=== PATIENT | female | born 1950 | race African-American/Black ===

== ENCOUNTER 2020-12-26 12:04 | Inpatient (IN) | payer MEDICARE ==
[2020-12-26 12:46] LABS: #Monocytes 0.7 10x3/uL (0.0-1.1); %Basophils 0.3 % (0.0-2.0); %Eosinophils 0.3 % (0.0-6.0); %Lymphocytes 34.4 % (18.0-47.0); %Monocytes 7.8 % (0.0-10.0); Hemoglobin 12.4 g/dL (12.0-15.5); Mean Corpuscular HGB CONC 34.1 g/dL (32.0-36.0); Mean Corpuscular Hemoglobin 35.4 pg (27.0-33.0); Mean Platelet Volume 9.2 fl (7.4-10.4); Platelet Count 426 10x3/uL (150-450); RBC Distribution Width 13.8 % (11.5-14.5); White Blood Cell (WBC) Count 8.8 10x3/uL (3.5-10.5)
[2020-12-26] MEDS ORDERED: HYDROcodone/Acetaminophen 10/325 mg Tablet ONE (12:50)
[2020-12-26 13:11] LABS: INR-International Normal Ratio 1.1; PTT 29.3 sec (22.0-33.0); Prothrombin Time 11.5 sec (9.5-12.1)
[2020-12-26 13:34] LABS: ALT (SGPT) 13 U/L (8-55); AST (SGOT) 24 U/L (5-34); Alkaline Phosphatase 92 U/L (40-110); Anion Gap 18 mmol/L (10-20); BUN (Urea Nitrogen) 14 mg/dL (9.8-20.1); Bilirubin, Total 0.4 mg/dL (0.2-1.2); Calc. Creatinine Clearance 0 mL/min (70-130); Calcium 10.3 mg/dL (7.8-10.44); Carbon Dioxide 21 mmol/L (23-31); Chloride 100 mmol/L (98-107); Globulin 3.7 g/dL (2.4-3.5); Glucose 95 mg/dL (83-110); Potassium 3.4 mmol/L (3.5-5.1); Protein, Total 7.7 g/dL (5.8-8.1); Sodium 136 mmol/L (136-145)
[2020-12-26] MEDS ORDERED: Lidocaine 1% (PF) 30 ML VIAL ONE (15:16)
[2020-12-26] MEDS ORDERED: Nitroglycerin 50 MG/250 ML BOT 0 ML ONE (15:16)
[2020-12-26] MEDS ORDERED: Heparin 10,000 UNITS/ 10 ML VIAL ONE (15:16)
[2020-12-26] MEDS ORDERED: Adenosine 6 MG/2 ML VIAL ONE (15:17)
[2020-12-26] MEDS ORDERED: Sodium Chloride 0.9% 1,000 ML ONE (15:18)
[2020-12-26] MEDS ORDERED: Midazolam HCl 5 mg/5 ml Vial ONE (15:42)
[2020-12-26] MEDS ORDERED: Fentanyl 250 MCG/5 ML VIAL ONE (15:42)
[2020-12-26] MEDS ORDERED: Heparin 25,000 units/D5W 500 ML ONE (16:19)
[2020-12-26] MEDS ORDERED: hydrALAZINE 20 MG/ML VIAL ONE ×2 (16:35→17:24)
[2020-12-26] MEDS ORDERED: SODIUM CHLORIDE 0.9% IVPB SCH ×3 (17:00→18:45)
[2020-12-26] MEDS ORDERED: ALTEPLASE IVPB SCH ×3 (17:00→18:45)
[2020-12-26] MEDS ORDERED: Labetalol HCl 100 MG/20 ML VIAL ONE (17:02)
[2020-12-26] MEDS ORDERED: Sodium Chloride 0.9% 1,000 ML IV SCH (17:15)
[2020-12-26] MEDS ORDERED: Heparin 25,000 units/D5W 500 ML IVPB SCH (17:30)
[2020-12-26] MEDS ORDERED: Heparin 10,000 UNITS/ 10 ML VIAL SLOW IVP SCH (18:45)
[2020-12-26] MEDS ORDERED: Heparin 25,000 units/D5W 500 ML IV SCH (18:45)
[2020-12-26] MEDS: Morphine 2 MG/ML VIAL SLOW IVP PRN ×4 (18:50→22:45)
[2020-12-26] MEDS: Fentanyl 100 MCG/2 ML VIAL SLOW IVP PRN ×4 (19:45→23:45)
[2020-12-26] MEDS ORDERED: Nitroglycerin 2% Ointment 1 INCH/1 GM Packet TOP PRN (20:13)
[2020-12-26] MEDS ORDERED: Labetalol HCl 100 MG/20 ML VIAL IVPB PRN (20:14)
[2020-12-26] MEDS ORDERED: Nitroglycerin 50 MG/250 ML BOT 250 ML IVPB SCH (20:30)
[2020-12-26 20:43] LABS: Hemoglobin 12.1 g/dL (12.0-15.5); Platelet Count 397 10x3/uL (150-450)
[2020-12-27 00:48] LABS: PTT 90.9 sec (22.0-33.0)
[2020-12-27] MEDS: Fentanyl 100 MCG/2 ML VIAL SLOW IVP PRN ×5 (01:10→18:53)
[2020-12-27 02:44] LABS: #Monocytes 0.5 10x3/uL (0.0-1.1); #Neutrophils 4.8 10x3/uL (1.5-8.4); %Basophils 0.4 % (0.0-2.0); %Lymphocytes 22.8 % (18.0-47.0); %Monocytes 7.5 % (0.0-10.0); %Neutrophils 68.2 % (40.0-75.0); Hemoglobin 8.3 g/dL (12.0-15.5); Mean Corpuscular HGB CONC 34.3 g/dL (32.0-36.0); Mean Corpuscular Hemoglobin 35.5 pg (27.0-33.0); Mean Corpuscular Volume 103.4 fl (81.6-98.3); Mean Platelet Volume 9.8 fl (7.4-10.4); Platelet Count 279 10x3/uL (150-450); RBC Distribution Width 13.9 % (11.5-14.5); Red Blood Cell (RBC) Count 2.34 10x6/uL (3.90-5.03)
[2020-12-27 03:23] LABS: Anion Gap 18 mmol/L (10-20); Globulin 2.3 g/dL (2.4-3.5)
[2020-12-27 03:29] LABS: ALT (SGPT) 10 U/L (8-55); AST (SGOT) 21 U/L (5-34); Albumin 2.5 g/dL (3.4-4.8); Alkaline Phosphatase 57 U/L (40-110); BUN (Urea Nitrogen) 16 mg/dL (9.8-20.1); Bilirubin, Total 0.3 mg/dL (0.2-1.2); Calc. Creatinine Clearance 69 mL/min (70-130); Calcium 6.6 mg/dL (7.8-10.44); Carbon Dioxide 13 mmol/L (23-31); Chloride 105 mmol/L (98-107); Glucose 443 mg/dL (83-110); Potassium 2.6 mmol/L (3.5-5.1); Protein, Total 4.8 g/dL (5.8-8.1); Sodium 133 mmol/L (136-145)
[2020-12-27 06:39] LABS: PTT 83.3 sec (22.0-33.0)
[2020-12-27] MEDS ORDERED: Potassium Chloride 20 MEQ TAB PO SCH (06:45)
[2020-12-27 07:02] LABS: Platelet Count 359 10x3/uL (150-450)
[2020-12-27] MEDS ORDERED: Lidocaine 1% (PF) 30 ML VIAL ONE (08:37)
[2020-12-27] MEDS ORDERED: Bivalirudin 250 MG VIAL ONE (08:38)
[2020-12-27] MEDS ORDERED: Adenosine 6 MG/2 ML VIAL ONE (08:38)
[2020-12-27] MEDS ORDERED: Heparin 10,000 UNITS/ 10 ML VIAL ONE (08:38)
[2020-12-27] MEDS ORDERED: Nitroglycerin 50 MG/250 ML BOT 0 ML ONE (08:38)
[2020-12-27] MEDS ORDERED: Verapamil 5 MG/2 ML VIAL ONE (08:39)
[2020-12-27] MEDS ORDERED: Fentanyl 250 MCG/5 ML VIAL ONE (09:33)
[2020-12-27] MEDS ORDERED: Midazolam HCl 2 mg/2 ml Vial ONE (09:33)
[2020-12-27] MEDS ORDERED: Labetalol HCl 100 MG/20 ML VIAL ONE (10:20)
[2020-12-27] MEDS ORDERED: Clopidogrel Bisulfate 75 MG TAB PO SCH (11:00)
[2020-12-27] MEDS ORDERED: Clopidogrel Bisulfate 75 MG TAB ONE (11:21)
[2020-12-27 12:31] LABS: Hemoglobin A1c 5.1 % (4.0-6.0)
[2020-12-27] MEDS: Morphine 2 MG/ML VIAL SLOW IVP PRN (21:49)
[2020-12-27] MEDS: Sodium Chloride 0.9% 1,000 ML IV SCH (21:55)
[2020-12-28] MEDS: Sodium Chloride 0.9% 1,000 ML IV SCH ×3 (01:08→23:16)
[2020-12-28] MEDS: Morphine 2 MG/ML VIAL SLOW IVP PRN ×3 (02:38→21:04)
[2020-12-28] MEDS: Fentanyl 100 MCG/2 ML VIAL SLOW IVP PRN ×5 (04:08→15:53)
[2020-12-28] MEDS: hydrALAZINE 20 MG/ML VIAL SLOW IVP PRN (04:45)
[2020-12-28 05:57] LABS: ALT (SGPT) 15 U/L (8-55); AST (SGOT) 53 U/L (5-34); Albumin 2.5 g/dL (3.4-4.8); Alkaline Phosphatase 47 U/L (40-110); Anion Gap 10 mmol/L (10-20); BUN (Urea Nitrogen) 20 mg/dL (9.8-20.1); Bilirubin, Total 0.3 mg/dL (0.2-1.2); Calc. Creatinine Clearance 68 mL/min (70-130); Calcium 6.2 mg/dL (7.8-10.44); Carbon Dioxide 16 mmol/L (23-31); Chloride 118 mmol/L (98-107); Globulin 2.1 g/dL (2.4-3.5); Glucose 88 mg/dL (83-110); Protein, Total 4.6 g/dL (5.8-8.1); Sodium 141 mmol/L (136-145)
[2020-12-28 06:05] LABS: Potassium 2.7 mmol/L (3.5-5.1)
[2020-12-28 06:11] LABS: #Monocytes 0.7 10x3/uL (0.0-1.1); #Neutrophils 4.2 10x3/uL (1.5-8.4); %Basophils 0.2 % (0.0-2.0); %Eosinophils 0.2 % (0.0-6.0); %Lymphocytes 24.3 % (18.0-47.0); %Monocytes 10.4 % (0.0-10.0); %Neutrophils 64.4 % (40.0-75.0); Hemoglobin 7.1 g/dL (12.0-15.5); Mean Corpuscular HGB CONC 33.2 g/dL (32.0-36.0); Mean Corpuscular Hemoglobin 35.1 pg (27.0-33.0); Mean Corpuscular Volume 105.9 fl (81.6-98.3); Mean Platelet Volume 9.7 fl (7.4-10.4); RBC Distribution Width 14.6 % (11.5-14.5); Red Blood Cell (RBC) Count 2.02 10x6/uL (3.90-5.03); White Blood Cell (WBC) Count 6.5 10x3/uL (3.5-10.5)
[2020-12-28 06:12] LABS: Platelet Count 250 10x3/uL (150-450)
[2020-12-28] MEDS ORDERED: Clopidogrel Bisulfate 75 MG TAB PO SCH (09:00)
[2020-12-28 09:30] LABS: #Monocytes 0.7 10x3/uL (0.0-1.1); #Neutrophils 5.7 10x3/uL (1.5-8.4); %Basophils 0.4 % (0.0-2.0); %Eosinophils 0.2 % (0.0-6.0); %Lymphocytes 23.4 % (18.0-47.0); Hemoglobin 8.4 g/dL (12.0-15.5); Mean Corpuscular Hemoglobin 35.6 pg (27.0-33.0); Mean Corpuscular Volume 104.7 fl (81.6-98.3); Mean Platelet Volume 9.8 fl (7.4-10.4); Platelet Count 277 10x3/uL (150-450); RBC Distribution Width 14.6 % (11.5-14.5); Red Blood Cell (RBC) Count 2.36 10x6/uL (3.90-5.03); White Blood Cell (WBC) Count 8.4 10x3/uL (3.5-10.5)
[2020-12-28] MEDS ORDERED: Potassium Chloride 20 MEQ TAB PO SCH (09:45)
[2020-12-28 09:56] LABS: Potassium 3.8 mmol/L (3.5-5.1)
[2020-12-28] MEDS ORDERED: Carvedilol 12.5 MG TAB PO SCH (10:15)
[2020-12-28 17:07] LABS: Hemoglobin 8.1 g/dL (12.0-15.5); Platelet Count 252 10x3/uL (150-450)
[2020-12-28 17:09] LABS: Anion Gap 12 mmol/L (10-20)
[2020-12-28 17:23] LABS: BUN (Urea Nitrogen) 25 mg/dL (9.8-20.1); Calc. Creatinine Clearance 62 mL/min (70-130); Calcium 9.1 mg/dL (7.8-10.44); Carbon Dioxide 22 mmol/L (23-31); Chloride 108 mmol/L (98-107); Glucose 110 mg/dL (83-110); Potassium 5.1 mmol/L (3.5-5.1); Sodium 137 mmol/L (136-145)
[2020-12-29] MEDS: Morphine 2 MG/ML VIAL SLOW IVP PRN ×4 (00:18→18:56)
[2020-12-29] MEDS: Fentanyl 100 MCG/2 ML VIAL SLOW IVP PRN ×9 (00:36→23:45)
[2020-12-29] MEDS: hydrALAZINE 20 MG/ML VIAL SLOW IVP PRN (02:36)
[2020-12-29] MEDS: Sodium Chloride 0.9% 1,000 ML IV SCH ×2 (06:18→18:56)
[2020-12-29 06:20] LABS: INR-International Normal Ratio 1.1; PTT 27.3 sec (22.0-33.0); Prothrombin Time 11.3 sec (9.5-12.1)
[2020-12-29 09:04] LABS: #Eosinphils 0.1 10x3/uL (0.0-0.5); #Monocytes 0.9 10x3/uL (0.0-1.1); %Basophils 0.1 % (0.0-2.0); %Eosinophils 0.6 % (0.0-6.0); %Lymphocytes 20.7 % (18.0-47.0); %Monocytes 9.9 % (0.0-10.0); %Neutrophils 68.2 % (40.0-75.0); Hemoglobin 8.7 g/dL (12.0-15.5); Mean Corpuscular HGB CONC 33.7 g/dL (32.0-36.0); Mean Corpuscular Hemoglobin 35.4 pg (27.0-33.0); Mean Corpuscular Volume 104.9 fl (81.6-98.3); Mean Platelet Volume 9.8 fl (7.4-10.4); Platelet Count 273 10x3/uL (150-450); RBC Distribution Width 14.6 % (11.5-14.5); Red Blood Cell (RBC) Count 2.46 10x6/uL (3.90-5.03); White Blood Cell (WBC) Count 8.8 10x3/uL (3.5-10.5)
[2020-12-29 09:06] LABS: Anion Gap 12 mmol/L (10-20); BUN (Urea Nitrogen) 11 mg/dL (9.8-20.1); Calc. Creatinine Clearance 70 mL/min (70-130); Calcium 9.3 mg/dL (7.8-10.44); Carbon Dioxide 22 mmol/L (23-31); Chloride 104 mmol/L (98-107); Glucose 98 mg/dL (83-110); Potassium 4.1 mmol/L (3.5-5.1); Sodium 134 mmol/L (136-145)
[2020-12-29 09:17] LABS: PTT 26.4 sec (22.0-33.0)
[2020-12-29 09:46] LABS: SARS-CoV-2 NAA Rapid Test Not Detected (NotDetected)
[2020-12-29] MEDS: Carvedilol 12.5 MG TAB PO SCH ×3 (10:52→18:56)
[2020-12-29 16:05] LABS: Platelet Count 281 thou/uL (130-400)
[2020-12-29 16:25] LABS: EPI 159 SEC (67-199)
[2020-12-29] MEDS ORDERED: Morphine 2 MG/ML VIAL ONE (18:48)
[2020-12-29] MEDS ORDERED: Fentanyl 100 MCG/2 ML VIAL ONE ×3 (19:29→23:39)
[2020-12-30] MEDS ORDERED: Fentanyl 100 MCG/2 ML VIAL ONE ×15 (01:53→23:19)
[2020-12-30] MEDS: Fentanyl 100 MCG/2 ML VIAL SLOW IVP PRN ×14 (02:11→23:20)
[2020-12-30] MEDS: Sodium Chloride 0.9% 1,000 ML IV SCH ×2 (04:59→13:58)
[2020-12-30] MEDS: Carvedilol 12.5 MG TAB PO SCH ×3 (09:42→16:32)
[2020-12-30] MEDS ORDERED: Morphine 4 MG/ML VIAL ONE (14:58)
[2020-12-30] MEDS: Morphine 4 MG/ML VIAL SLOW IVP PRN (15:04)
[2020-12-30 17:57] LABS: Hemoglobin 9.6 g/dL (12.0-15.5); Platelet Count 278 10x3/uL (150-450)
[2020-12-31] MEDS: Sodium Chloride 0.9% 1,000 ML IV SCH ×3 (00:12→22:10)
[2020-12-31] MEDS ORDERED: Fentanyl 100 MCG/2 ML VIAL ONE ×4 (00:33→10:40)
[2020-12-31] MEDS ORDERED: HYDROcodone/Acetaminophen 5/325 mg Tablet PO SCH (01:00)
[2020-12-31] MEDS ORDERED: HYDROcodone/Acetaminophen 5/325 mg Tablet ONE (01:09)
[2020-12-31] MEDS: Fentanyl 100 MCG/2 ML VIAL SLOW IVP PRN ×6 (08:00→23:23)
[2020-12-31] MEDS: Carvedilol 12.5 MG TAB PO SCH ×2 (08:35→17:15)
[2020-12-31] MEDS: Morphine 4 MG/ML VIAL SLOW IVP PRN ×2 (11:10→19:59)
[2020-12-31] MEDS ORDERED: Morphine 4 MG/ML VIAL ONE (11:12)
[2020-12-31] MEDS ORDERED: PROPOFOL 20 ML ONE (12:59)
[2020-12-31] MEDS ORDERED: Lidocaine 1% PF 5 ML VIAL ONE (13:00)
[2020-12-31] MEDS ORDERED: Fentanyl 250 MCG/5 ML VIAL ONE (13:00)
[2020-12-31] MEDS ORDERED: Ondansetron PF 4 MG/2 ML Vial ONE (13:00)
[2020-12-31] MEDS ORDERED: Dexamethasone 4 mg/ml Vial ONE (13:00)
[2020-12-31] MEDS ORDERED: Rocuronium Bromide 10 MG/ML (10ML VIAL) ONE (13:00)
[2020-12-31] MEDS ORDERED: PHENYLEPHRINE-NS 100 MCG/ML 10 ML SYRINGE ONE ×2 (13:51→14:41)
[2020-12-31] MEDS ORDERED: CEFAZOLIN 1 GM VIAL ONE (13:55)
[2020-12-31] MEDS ORDERED: Glycopyrrolate 0.2 MG/ML 5 ML SYRINGE ONE (14:40)
[2021-01-01] MEDS: Morphine 4 MG/ML VIAL SLOW IVP PRN ×3 (01:53→10:45)
[2021-01-01] MEDS: Fentanyl 100 MCG/2 ML VIAL SLOW IVP PRN ×3 (03:51→14:23)
[2021-01-01 08:37] LABS: Mean Corpuscular HGB CONC 33.5 g/dL (32.0-36.0); Mean Corpuscular Hemoglobin 34.9 pg (27.0-33.0); Mean Corpuscular Volume 104.3 fl (81.6-98.3); Mean Platelet Volume 9.6 fl (7.4-10.4); Platelet Count 391 10x3/uL (150-450); RBC Distribution Width 15.6 % (11.5-14.5); Red Blood Cell (RBC) Count 2.58 10x6/uL (3.90-5.03); White Blood Cell (WBC) Count 12.4 10x3/uL (3.5-10.5)
[2021-01-01] MEDS: Sodium Chloride 0.9% 1,000 ML IV SCH ×2 (08:57→16:00)
[2021-01-01 09:09] LABS: Anion Gap 15 mmol/L (10-20); BUN (Urea Nitrogen) 11 mg/dL (9.8-20.1); Calc. Creatinine Clearance 60 mL/min (70-130); Calcium 9.1 mg/dL (7.8-10.44); Carbon Dioxide 22 mmol/L (23-31); Chloride 105 mmol/L (98-107); Glucose 102 mg/dL (83-110); Potassium 4.2 mmol/L (3.5-5.1); Sodium 138 mmol/L (136-145)
[2021-01-01] MEDS: Carvedilol 25 MG TAB PO SCH ×2 (09:15→16:00)
[2021-01-01] MEDS ORDERED: HYDROcodone/Acetaminophen 5/325 mg Tablet PO PRN (14:22)
[2021-01-01] MEDS ORDERED: Gabapentin 100 MG CAP PO SCH (15:00)
[2021-01-01] MEDS: HYDROcodone/Acetaminophen 10/325 mg Tablet PO PRN (16:00)
[2021-01-01 18:07] LABS: Hemoglobin 8.8 g/dL (12.0-15.5)
[2021-01-01 18:29] LABS: Platelet Count 348 10x3/uL (150-450)
[2021-01-01] MEDS: Gabapentin 300 MG CAP PO SCH (21:13)
[2021-01-02] MEDS: Sodium Chloride 0.9% 1,000 ML IV SCH ×3 (01:25→21:21)
[2021-01-02] MEDS: HYDROcodone/Acetaminophen 10/325 mg Tablet PO PRN ×3 (06:51→21:20)
[2021-01-02] MEDS: Gabapentin 300 MG CAP PO SCH ×2 (09:31→21:12)
[2021-01-02] MEDS: Clopidogrel Bisulfate 75 MG TAB PO SCH (09:33)
[2021-01-02] MEDS: Aspirin 81 mg Enteric Coated Tablet PO SCH (09:33)
[2021-01-02] MEDS: Carvedilol 25 MG TAB PO SCH ×2 (09:33→17:32)
[2021-01-02] MEDS: Lisinopril 5 MG TAB PO SCH (09:33)
[2021-01-02] MEDS: Fentanyl 100 MCG/2 ML VIAL SLOW IVP PRN (09:34)
[2021-01-03 04:34] VITALS: BMI 17.0
[2021-01-03] MEDS: Gabapentin 300 MG CAP PO SCH (08:22)
[2021-01-03] MEDS: Clopidogrel Bisulfate 75 MG TAB PO SCH (08:23)
[2021-01-03] MEDS: Carvedilol 25 MG TAB PO SCH (08:23)
[2021-01-03] MEDS: Aspirin 81 mg Enteric Coated Tablet PO SCH (08:24)
[2021-01-03] MEDS: Lisinopril 5 MG TAB PO SCH (08:24)
[2021-01-03] MEDS: Sodium Chloride 0.9% 1,000 ML IV SCH (08:25)
[2021-01-03] MEDS ORDERED: Acetaminophen/Codeine 30-300mg Tablet PO PRN (11:17)
[2021-01-03 12:06] VITALS: BP 132/72; TEMP 97
[2021-01-03] MEDS: HYDROcodone/Acetaminophen 10/325 mg Tablet PO PRN (14:04)
== END 2021-01-03 16:20 | DRG 241 ==
LOC: CSHERS 12:04 → CSHIMCU 18:15 → CSHERHOLD 12-29 17:06 → CSHTELE 12-31 14:54
PROVIDERS: ADMIT Specialist; ATTEND Specialist
PROC: 3E05317 Introduction of Other Thrombolytic into Peripheral Artery, Percutaneous Approach (ICD-10-PCS; 2020-12-26)
PROC: B40F1ZZ Plain Radiography of Right Lower Extremity Arteries using Low Osmolar Contrast (ICD-10-PCS; 2020-12-26)
PROC: B40F1ZZ Plain Radiography of Right Lower Extremity Arteries using Low Osmolar Contrast (ICD-10-PCS; 2020-12-26)
PROC: 047M3ZZ Dilation of Right Popliteal Artery, Percutaneous Approach (ICD-10-PCS; 2020-12-27)
PROC: 047K3ZZ Dilation of Right Femoral Artery, Percutaneous Approach (ICD-10-PCS; 2020-12-27)
PROC: 30233N1 Transfusion of Nonautologous Red Blood Cells into Peripheral Vein, Percutaneous Approach (ICD-10-PCS; 2020-12-29)
PROC: 0Y6C0Z3 Detachment at Right Upper Leg, Low, Open Approach (ICD-10-PCS; principal; 2020-12-31)
DX: T82.868A Thrombosis due to vascular prosthetic devices, implants and grafts, initial encounter (principal); I70.221 Atherosclerosis of native arteries of extremities with rest pain, right leg; I27.20 Pulmonary hypertension, unspecified; E87.6 Hypokalemia; I10 Essential (primary) hypertension; I70.222 Atherosclerosis of native arteries of extremities with rest pain, left leg; Z20.822 Contact with and (suspected) exposure to COVID-19; Z85.118 Personal history of other malignant neoplasm of bronchus and lung; Z87.891 Personal history of nicotine dependence; J44.9 Chronic obstructive pulmonary disease, unspecified; E83.52 Hypercalcemia; Z79.82 Long term (current) use of aspirin; Z79.891 Long term (current) use of opiate analgesic; Z90.2 Acquired absence of lung [part of]
CPT/HCPCS: 36247; 36415; 36416; 36430; 37211; 37214; 37224; 71045; 75710; 75898; 80048; 80053; 83036; 83735; 85014; 85018; 85025; 85027; 85049; 85347; 85576; 85610; 85730; 86850; 86900; 86901; 88307; 93005; 93010; 93923; 94760; 99152; 99153; C1725; C1760; J0153; J0360; J0583; J0690; J1100; J1644; J2001; J2250; J2270; J2405; J2704; J2997; J3010; J7050; P9016; U0002

== ENCOUNTER 2021-02-19 09:59 | Outpatient (CLI) | payer MEDICARE | END 2021-02-19 10:00 | disposition home or self-care (01) | LOC: CSHCT 09:59 | PROVIDERS: ATTEND Internal Medicine Hematology & Oncology | DX: C34.32 Malignant neoplasm of lower lobe, left bronchus or lung (principal); Z90.2 Acquired absence of lung [part of]; E27.9 Disorder of adrenal gland, unspecified | CPT/HCPCS: 71260 ==

== ENCOUNTER 2021-07-03 21:16 | Emergency (ER) | payer MEDICARE | END 2021-07-03 22:45 | disposition left against medical advice (07) | LOC: CSHERS 21:16 | DX: Z53.21 Procedure and treatment not carried out due to patient leaving prior to being seen by health care provider (principal) ==

== ENCOUNTER 2021-07-24 14:55 | Outpatient (CLI) | payer MEDICARE | END 2021-07-24 14:56 | disposition home or self-care (01) | LOC: CSHULT 14:55 | PROVIDERS: ATTEND Family Medicine | DX: N95.0 Postmenopausal bleeding (principal); N85.2 Hypertrophy of uterus | CPT/HCPCS: 76856 ==